=== PATIENT | male | born 1995 | race Caucasian/White ===

== ENCOUNTER 2025-01-30 17:59 | Emergency (ER) | payer OTHER, MEDICAID ==
[2025-01-30 18:47] VITALS: BP 143/93; PULSE 76
[2025-01-30] MEDS: Ketorolac 60 MG/2 ML SDV IM ONE (19:27)
[2025-01-30] MEDS: Acetaminophen 325 MG Tab PO ONE (19:28)
== END 2025-01-30 20:43 | disposition home or self-care (01) ==
LOC: JD.ED 17:59
DX: S92.424A Nondisplaced fracture of distal phalanx of right great toe, initial encounter for closed fracture (principal); Z79.899 Other long term (current) drug therapy; F17.210 Nicotine dependence, cigarettes, uncomplicated; W20.8XXA Other cause of strike by thrown, projected or falling object, initial encounter
CPT/HCPCS: 73660; 96372; 99283; A9270; J1885